=== PATIENT | male | born 1955 | race Caucasian/White ===

== ENCOUNTER 2022-10-02 07:32 | Outpatient (OUT) | payer OTHER, SELFPAY ==
[2022-10-02 07:50] LABS: Basophils Absolute Auto 0.1 10^3/uL (0.0-0.1); Basophils Percent Auto 0.7 % (0.2-2.0); Eosinophils Absolute Auto 0.3 10^3/uL (0.0-0.7); Eosinophils Percent Auto 4.3 % (0.9-7.0); Hematocrit 50.4 % (42.0-54.0); Hemoglobin 16.7 g/dL (14.0-18.0); Immature Granulocytes Abs Auto 0.02 10^3/uL (0.00-0.03); Immature Granulocytes Pct Auto 0.3 % (0.0-0.5); Lymphocytes Percent Auto 28.6 % (20.5-60.0); Mean Corpuscular HGB Conc 33.1 g/dL (29.9-35.2); Mean Corpuscular Hemoglobin 29.8 pg (25.9-34.0); Mean Platelet Volume 8.6 fL (9.5-13.5); Monocytes Absolute Auto 0.7 10^3/uL (0.3-0.8); Monocytes Percent Auto 9.3 % (1.7-12.0); Neutrophils Percent Auto 56.8 % (43.0-75.0); Platelet Count 261 10^3/uL (150-450)
[2022-10-02 08:10] LABS: Estimated Average Glucose 111 mg/dL; Glycohemoglobin A1C 5.5 % (4.5-6.2)
[2022-10-02 08:31] LABS: Alanine Aminotransferase 18 U/L (16-63); Albumin Globulin Ratio 0.9; Albumin Level 3.6 g/dL (3.4-5.0); Alkaline Phosphatase 59 U/L (46-116); Anion Gap 9.4; Aspartate Amino Transferase 10 U/L (15-37); Bilirubin Total 0.4 mg/dL (0.2-1.0); Calcium 9.2 mg/dL (8.5-10.1); Carbon Dioxide 32.1 mmol/L (21.0-32.0); Chloride 105 mmol/L (98-107); Cholesterol 203 mg/dL (<=200); Estimated GFR (African America >60 (>=60); Estimated GFR (Non-African Ame >60 (>=60); Free T3 3.27 pg/mL (2.18-3.98); Glucose 105 mg/dL (74-106); HDL Cholesterol 51 mg/dL (40-60); Potassium 4.5 mmol/L (3.5-5.1); Sodium 142 mmol/L (136-145); Thyroid Stimulating Hormone 2.751 uIU/mL (0.358-3.740); Total Protein 7.6 g/dL (6.4-8.2); Triglycerides 86 mg/dL (<=150); VLDL CHOLESTEROL 17.2 mg/dL
[2022-10-02 09:17] LABS: Prostate Specific Antigen Scrn 9.59 ng/mL (<=4.00)
== END 2022-10-02 07:33 | disposition home or self-care (01) ==
PROVIDERS: PCP Family Medicine; Visit Provider Family Medicine
DX: J44.9 Chronic obstructive pulmonary disease, unspecified (principal); R73.09 Other abnormal glucose; Z12.5 Encounter for screening for malignant neoplasm of prostate
CPT/HCPCS: 36415; 80053; 80061; 83036; 84436; 84443; 84481; 85025; G0103

== ENCOUNTER 2023-04-27 09:47 | Inpatient (IN) | payer MEDICARE, OTHER, SELFPAY ==
[2023-04-27] VITALS (8 sets, daily range): BP systolic 118–134; BP diastolic 55–83; PULSE 78–100; RESP 14–22; TEMP 36.5–36.8; O2SAT 94–100; BMI 25.8; BMI 26.5
--- NOTE | 2023-04-27 10:02 | ED.SKABFB1 ---
HPI - Skin/Abscess/Foreign Bdy General Chief complaint: Skin/Abscess/Foreign Body Stated complaint: Abscess Time Seen by Provider: 04/27/23 09:49 Source: patient Mode of arrival: walk-in Limitations: no limitations History of Present Illness HPI narrative: 68-year-old male presents for painful red swollen area on his left buttock. He states for years he has had a small spot there but it never gave him any trouble until a week or 2 ago. It started getting bigger and it popped open and his squeezed it and he states that some pus came out. It continues to hurt so he came in to be evaluated. No fever or vomiting Related Data Home Medications Medication Instructions Recorded Confirmed albuterol sulfate 90 mcg/actuation 2 puff inhalation Q4H PRN 04/27/23 04/27/23 aerosol inhaler shortness of breath or wheezing fluticasone fur. 100 mcg-umeclid 1 inh inhalation DAILY 04/27/23 04/27/23 62.5 mcg-vilant 25 mcg inhalat.powder (Trelegy Ellipta) Allergies Allergy/AdvReac Type Severity Reaction Status Date / Time No Known Drug Allergies Allergy Verified 04/27/23 09:51 Review of Systems ROS Narrative A ten point review of systems is negative except as noted above. PFSH PFSH Social History Smoking status: Heavy tobacco smoker Exam Narrative Exam Narrative: Nurses note and vital signs reviewed and patient is not hypoxic. General: The patient appears well and in no apparent distress. Patient is resting comfortably on cart. Skin: Warm, dry, no pallor noted. There is no rash noted. Head: Normocephalic, atraumatic Eye: Normal conjunctiva, no drainage Ears, Nose, Mouth, and Throat: oral mucosa is moist. Nares patent. Cardiovascular: Regular Rate and Rhythm Respiratory: Patient is in no distress, no accessory muscle use, lungs are clear to auscultation, no wheezing, rales or rhonchi Back: non-tender GI: Soft and nontender Musculoskeletal: Left buttock has a raised erythematous tender area with mild fluctuance. There is no open area or drainage. The firm area is approximately 3 inches in diameter. Neurological: A&O, normal speech Psychiatric: Cooperative Constitutional Vital Signs, click to edit/add: Last Vital Signs Temp 97.7 F 04/27/23 09:52 Pulse 78 02/13/24 09:52 Resp 20 04/27/23 09:52 BP 118/71 04/27/23 09:52 Pulse Ox 98 04/27/23 09:52 O2 Del Method Room Air 04/27/23 09:52 Course Vital Signs Vital signs: Vital Signs Temperature 97.7 F 04/27/23 09:52 Pulse Rate 78 04/27/23 09:52 Respiratory Rate 20 04/27/23 09:52 Blood Pressure 118/71 04/27/23 09:52 Pulse Oximetry 98 04/27/23 09:52 Oxygen Delivery Method Room Air 04/27/23 09:52 Temperature 97.7 F 04/27/23 09:52 Pulse Rate 78 04/27/23 09:52 Respiratory Rate 20 04/27/23 09:52 Blood Pressure 118/71 04/27/23 09:52 Pulse Oximetry 98 04/27/23 09:52 Oxygen Delivery Method Room Air 04/27/23 09:52 MDM - Skin/Abscess/Foreign Bdy MDM Narrative Medical decision making narrative: The patient has an abscess which has been incised and drained. He was given IV vancomycin and is being admitted for further IV antibiotics. This is a large abscess that requires hospitalization. Findings are discussed with the patient. The following procedure was performed by me. Local infiltration was carried out with 1% lidocaine without epinephrine resulting in good skin anesthesia. The area was prepped with Betadine x 3 and draped sterilely and using a #11 blade the abscess was incised and drained of a moderate amount of purulent material and packing was placed. No complications. Differential Diagnosis Differential diagnosis: Likely abscess of skin or subcutaneous tissue and cellulitis Lab Data Attestation: I reviewed the patient's lab results. Labs: Lab Results 04/27/23 Range/Units 10:15 WBC 11.2 H (4.0-11.0) 10^3/uL RBC 5.27 (4.70-6.10) 10^6/uL Hgb 15.9 (14.0-18.0) g/dL Hct 48.0 (42.0-54.0) % MCV 91.1 (80.0-94.0) fL MCH 30.2 (25.9-34.0) pg MCHC 33.1 (29.9-35.2) g/dL RDW 12.6 (11.0-15.0) % Plt Count 264 (150-450) 10^3/uL MPV 9.3 L (9.5-13.5) fL Neut % (Auto) 70.9 (43.0-75.0) % Lymph % (Auto) 17.8 L (20.5-60.0) % [place] % (Auto) 8.7 (1.7-12.0) % Eos % (Auto) 1.9 (0.9-7.0) % Baso % (Auto) 0.4 (0.2-2.0) % Neut # (Auto) 7.9 H (1.4-6.5) 10^3/uL Lymph # (Auto) 2.0 (1.2-3.8) 10^3/uL [place] # (Auto) 1.0 H (0.3-0.8) 10^3/uL Eos # (Auto) 0.2 (0.0-0.7) 10^3/uL Baso # (Auto) 0.1 (0.0-0.1) 10^3/uL Abs Immat Gran (auto) 0.03 (0.00-0.03) 10^3/uL Imm/Tot Granulo (auto) 0.3 (0.0-0.5) % Sodium 139 (136-145) mmol/L Potassium 3.8 (3.5-5.1) mmol/L Chloride 103 (98-107) mmol/L Carbon Dioxide 29.0 (21.0-32.0) mmol/L Anion Gap 10.8 BUN 18.0 (7.0-18.0) mg/dL Creatinine 1.13 (0.70-1.30) mg/dL Est GFR ( Amer) >60 (>=60) Est GFR (Non-Af Amer) >60 (>=60) BUN/Creatinine Ratio 15.9 Glucose 102 (74-106) mg/dL Calcium 9.3 (8.5-10.1) mg/dL Discharge Plan Discharge Chief Complaint: Skin/Abscess/Foreign Body Clinical Impression: Abscess Patient Disposition: Admitted as Observation Time of Disposition Decision: 11:45 Condition: Good
[2023-04-27] MEDS: LIDOCAINE HCL 1% 100 MG/10 ML MDV INJ (10:21)
[2023-04-27 10:33] LABS: Basophils Absolute Auto 0.1 10^3/uL (0.0-0.1); Basophils Percent Auto 0.4 % (0.2-2.0); Eosinophils Absolute Auto 0.2 10^3/uL (0.0-0.7); Eosinophils Percent Auto 1.9 % (0.9-7.0); Hemoglobin 15.9 g/dL (14.0-18.0); Immature Granulocytes Abs Auto 0.03 10^3/uL (0.00-0.03); Immature Granulocytes Pct Auto 0.3 % (0.0-0.5); Lymphocytes Percent Auto 17.8 % (20.5-60.0); Mean Corpuscular HGB Conc 33.1 g/dL (29.9-35.2); Mean Corpuscular Hemoglobin 30.2 pg (25.9-34.0); Mean Corpuscular Volume 91.1 fL (80.0-94.0); Mean Platelet Volume 9.3 fL (9.5-13.5); Monocytes Percent Auto 8.7 % (1.7-12.0); Neutrophils Absolute Auto 7.9 10^3/uL (1.4-6.5); Neutrophils Percent Auto 70.9 % (43.0-75.0); Platelet Count 264 10^3/uL (150-450); Red Blood Count 5.27 10^6/uL (4.70-6.10); Red Cell Distribution Width 12.6 % (11.0-15.0); White Blood Count 11.2 10^3/uL (4.0-11.0)
[2023-04-27 11:00] LABS: Anion Gap 10.8; BUN Creatinine Ratio 15.9; Calcium 9.3 mg/dL (8.5-10.1); Chloride 103 mmol/L (98-107); Estimated GFR (African America >60 (>=60); Estimated GFR (Non-African Ame >60 (>=60); Glucose 102 mg/dL (74-106); Potassium 3.8 mmol/L (3.5-5.1); Sodium 139 mmol/L (136-145)
[2023-04-27 12:00] LABS: Alanine Aminotransferase 20 U/L (16-63); Albumin Globulin Ratio 0.7; Albumin Level 3.3 g/dL (3.4-5.0); Alkaline Phosphatase 65 U/L (46-116); Aspartate Amino Transferase 15 U/L (15-37); Bilirubin Direct 0.2 mg/dL (0.0-0.2); Bilirubin Total 0.6 mg/dL (0.2-1.0); Globulin 4.7 g/dL
[2023-04-27] MEDS: PIPERACILLIN SODIUM/TAZOBACTAM 3.375 GM in 0.9 % SODIUM CHLORIDE 50 ML IV ×2 (12:36→22:49)
[2023-04-27 12:38] LABS: Lactate/Lactic Acid 1.2 mmol/L (0.4-2.0)
[2023-04-27 13:19] LABS: PROCALCITONIN <0.05 ng/mL (0.00-0.50)
[2023-04-27] MEDS: VANCOMYCIN HCL 1,250 MG in 0.9 % SODIUM CHLORIDE 250 ML 250 MG IV (13:35)
--- NOTE | 2023-04-27 14:05 | P.HP_ITS ---
H&P: HPI History of Present Illness Chief complaint: ABSCESS Narrative: Pt has had a lump - for a long time - in last two weeks getting bigger - some drainage - in last 2 days got much worse - in ER large drainage, packed - needs admitted - possible further surgical intervention Review of Systems ROS Status of ROS 10 or more systems reviewed and unremark able except as noted in history and below PFSH PFS Social History (Updated 04/27/23 @ 14:26 by Mercedes Kay RN) Smoking status: Heavy tobacco smoker Highest level of school completed/degree received: high school graduate Little interest or pleasure in doing things: not at all Feeling down, depressed, or hopeless: not at all Feel stressed/tense/nervous/anxious/difficulty sleeping: not at all Due to disability, difficulty making decisions: No Meds Home Medications and Allergies Home Medications Medication Instructions Recorded Confirmed Type albuterol sulfate 90 mcg/actuation 2 puff inhalation Q4H PRN 04/27/23 04/27/23 History aerosol inhaler shortness of breath or wheezing fluticasone fur. 100 mcg-umeclid 1 inh inhalation DAILY 04/27/23 04/27/23 History 62.5 mcg-vilant 25 mcg inhalat.powder (Trelegy Ellipta) Allergies Allergy/AdvReac Type Severity Reaction Status Date / Time No Known Drug Allergies Allergy Verified 04/27/23 09:51 Exam Constitutional Vital Signs, click to edit/add: Last Vital Signs Temp 97.7 F 04/27/23 09:52 Pulse 98 H 04/27/23 12:37 Resp 18 04/27/23 13:53 BP 118/71 04/27/23 13:53 Pulse Ox 100 04/27/23 13:53 O2 Del Method Room Air 04/27/23 12:37 Documenting provider has reviewed patient's vital signs: yes Common normals: no apparent distress Chest Common normals: inspection of chest normal Respiratory Common normals: normal respiratory effort and no retractions Cardio Common normals: regular rate and regular rhythm GI Common normals: Normal to inspection, nondistended, normoactive bowel sounds present Other: Left buttocks area - The wound is packed Results Labs Labs: Short CBC 04/27/23 Range/Units 10:15 WBC 11.2 H (4.0-11.0) 10^3/uL Hgb 15.9 (14.0-18.0) g/dL Hct 48.0 (42.0-54.0) % Plt Count 264 (150-450) 10^3/uL BMP 04/27/23 10:15 Sodium 139 Potassium 3.8 Chloride 103 Carbon Dioxide 29.0 BUN 18.0 Creatinine 1.13 Glucose 102 Calcium 9.3 Liver Function 04/27/23 Range/Units 10:15 Total Bilirubin 0.6 (0.2-1.0) mg/dL Direct Bilirubin 0.2 (0.0-0.2) mg/dL AST 15 (15-37) U/L ALT 20 (16-63) U/L Alkaline Phosphatase 65 (46-116) U/L Albumin 3.3 L (3.4-5.0) g/dL Assessment and Plan Assessment and Plan (1) Abscess: Plan Tachycardia, leukocytosis abscess formation left butt cheek, concerning for possible fistula with proximity to rectum. Consultation to surgery, IV antibiotics. Blood cultures pending, wound culture pending-check lactate level as well as sed rate and CRP. COPD-continue with home medications With failed outpatient treatment progression of his illness fairly rapidly last 24 to 48 hours, surgical intervention, with home manipulation suspect possibly deeper abscess. Patient likely here 2 to 3 days. Inpatient status.
[2023-04-27 15:04] LABS: Erythrocyte Sedimentation Rate 34 mm/hr (<=20)
[2023-04-27 15:19] LABS: C Reactive Protein 2.36 mg/dL (<=0.50)
[2023-04-27 15:22] LABS: Lactate/Lactic Acid 2.2 mmol/L (0.4-2.0)
[2023-04-27] MEDS: 0.9 % SODIUM CHLORIDE 1,000 ML 1000 ML IV ×2 (16:25→17:38)
[2023-04-27 18:13] LABS: Lactate/Lactic Acid 1.2 mmol/L (0.4-2.0)
[2023-04-27] MEDS: BUDESONIDE 0.5 MG/2 ML AMPULE NEB IH (20:11)
[2023-04-27] MEDS: IPRATROPIUM/ALBUTEROL SULFATE 3 ML AMPUL.NEB 2.5 ML IH (20:11)
[2023-04-27 20:50] LABS: Adenovirus NOT DETECTED (NOT DETECTE); Bordetella parapertussis NOT DETECTED (NOT DETECTE); Coronavirus 229E NOT DETECTED (NOT DETECTE); Coronavirus HKU1 NOT DETECTED (NOT DETECTE); Coronavirus NL63 NOT DETECTED (NOT DETECTE); Coronavirus OC43 NOT DETECTED (NOT DETECTE); Human Metapneumovirus NOT DETECTED (NOT DETECTE); Human Rhinovirus/Enterovirus NOT DETECTED (NOT DETECTE); Influenza A NOT DETECTED (NOT DETECTE); Influenza B NOT DETECTED (NOT DETECTE); Mycoplasma pneumoniae NOT DETECTED (NOT DETECTE); Parainfluenza Virus 1 NOT DETECTED (NOT DETECTE); Parainfluenza Virus 2 NOT DETECTED (NOT DETECTE); Parainfluenza Virus 3 NOT DETECTED (NOT DETECTE); Parainfluenza Virus 4 NOT DETECTED (NOT DETECTE); Respiratory Syncytial Virus NOT DETECTED (NOT DETECTE); SARS-CoV-2 NOT DETECTED (NOT DETECTE)
[2023-04-28] MEDS: VANCOMYCIN HCL 1,000 MG in 0.9 % SODIUM CHLORIDE 250 ML 250 MG IV ×2 (02:49→11:46)
[2023-04-28 03:21] LABS: Bilirubin Urine NEGATIVE (NEGATIVE); Blood Urine NEGATIVE (NEGATIVE); Clarity Urine CLEAR (CLEAR); Color Urine LT. YELLOW (YELLOW); Glucose Urine UA NEGATIVE (NEGATIVE); Ketones Urine NEGATIVE (NEGATIVE); Leukocyte Esterase Urine SMALL (NEGATIVE); Nitrite Urine NEGATIVE (NEGATIVE); Protein Urine NEGATIVE (NEG/TRACE); Specific Gravity Urine 1.025 (1.005-1.025); Urobilinogen Urine 0.2 EU/dL (0.2-1.0); pH Urine 5.5 (5.0-9.0)
[2023-04-28 03:22] LABS: Urine Microscopic Indicated YES
[2023-04-28 03:28] LABS: Bacteria Urine NONE SEEN #/HPF (NONE SEEN); Cast Seen? NONE SEEN #/LPF (NONE SEEN); Crystals Seen? None Seen #/HPF (None Seen); Mucus Urine NONE SEEN (NONE SEEN); RBC Urine NONE SEEN #/HPF (0-2); Squamous Epithelial Cell Urine RARE #/LPF (NONE/RARE); WBC Urine 0-2 #/HPF (NONE SEEN)
[2023-04-28 05:06] VITALS: PULSE 72; RESP 16; O2SAT 97
[2023-04-28] MEDS: IPRATROPIUM/ALBUTEROL SULFATE 3 ML AMPUL.NEB 2.5 ML IH (05:06)
[2023-04-28] MEDS: PIPERACILLIN SODIUM/TAZOBACTAM 3.375 GM in 0.9 % SODIUM CHLORIDE 50 ML IV ×2 (05:09→11:09)
[2023-04-28 05:16] VITALS: PULSE 87; RESP 18; O2SAT 97
[2023-04-28 05:23] VITALS: BP 108/48; PULSE 80; RESP 18; TEMP 36.6; O2SAT 94
[2023-04-28 05:37] LABS: Basophils Percent Auto 0.4 % (0.2-2.0); Eosinophils Absolute Auto 0.2 10^3/uL (0.0-0.7); Eosinophils Percent Auto 2.2 % (0.9-7.0); Hematocrit 41.1 % (42.0-54.0); Hemoglobin 13.6 g/dL (14.0-18.0); Immature Granulocytes Abs Auto 0.02 10^3/uL (0.00-0.03); Immature Granulocytes Pct Auto 0.2 % (0.0-0.5); Lymphocytes Absolute Auto 2.5 10^3/uL (1.2-3.8); Lymphocytes Percent Auto 27.6 % (20.5-60.0); Mean Corpuscular HGB Conc 33.1 g/dL (29.9-35.2); Mean Corpuscular Hemoglobin 30.3 pg (25.9-34.0); Mean Corpuscular Volume 91.5 fL (80.0-94.0); Mean Platelet Volume 9.4 fL (9.5-13.5); Monocytes Absolute Auto 0.8 10^3/uL (0.3-0.8); Monocytes Percent Auto 8.5 % (1.7-12.0); Neutrophils Absolute Auto 5.6 10^3/uL (1.4-6.5); Neutrophils Percent Auto 61.1 % (43.0-75.0); Platelet Count 220 10^3/uL (150-450); Red Blood Count 4.49 10^6/uL (4.70-6.10); Red Cell Distribution Width 12.4 % (11.0-15.0); White Blood Count 9.1 10^3/uL (4.0-11.0)
[2023-04-28 05:56] LABS: Anion Gap 11.9; BUN Creatinine Ratio 14.4; Calcium 8.3 mg/dL (8.5-10.1); Carbon Dioxide 25.9 mmol/L (21.0-32.0); Chloride 106 mmol/L (98-107); Estimated GFR (African America >60 (>=60); Estimated GFR (Non-African Ame >60 (>=60); Glucose 103 mg/dL (74-106); Potassium 3.8 mmol/L (3.5-5.1); Sodium 140 mmol/L (136-145)
[2023-04-28 06:05] LABS: C Reactive Protein 2.28 mg/dL (<=0.50)
[2023-04-28 06:28] LABS: Erythrocyte Sedimentation Rate 52 mm/hr (<=20)
--- NOTE | 2023-04-28 09:44 | CM.NOTE ---
Rounds made with Dr. Manzo, awaiting general surgery to evaluate pt for further recommendations. Possible discharge this afternoon on antibiotics, nurse will do teaching with drsg changes.
--- NOTE | 2023-04-28 09:45 | CM.NOTE ---
Talked with pt about HH services for dressing changes, pt refuses HH services. Pt states he and his will be able to complete dressing changes.
--- NOTE | 2023-04-28 09:50 | P.DS_ITS ---
DS: Providers Provider Date of admission: 04/27/23 13:59 Primary care physician: Willie Manzo MD Consults: 04/27/23 13:59 Consult to General Surgeon Routine Consulting Provider: Bradford Scott Reason for consultation: Abscess Has provider been notified: No DS: Diagnosis Discharge Diagnosis (1) Abscess: DS: Summary Hospital Course Hospital Course: Patient presented to the emergency room with increasing swelling on his left buttocks. He been treating this as an outpatient with topical antibiotic cream in [place] and at home. With indicated to drain, it rapidly progressed in size, suspecting that instead of draining outwardly broken deep. I&D completed in ER with significant depth to the open area. Packing was placed. Consultation to surgery. At the time was felt highly likely this would be a lengthy stay. With the depth of the wound, his leukocytosis and his lactic acidosis with significant elevation in ESR and CRP, I anticipated a 2 to 3-day hospital stay. However his lactic acidosis resolved quickly his white blood cell count returned to normal, surgery evaluated and felt no further need for debridement. Although I do believe patient could benefit from another day or 2 of IV antibiotics due to the depth of this wound, will discharge patient to home in improving condition faster than expected. He can follow-up with surgery within the next week or so. Continue with oral antibiotics. See me in the office for follow-up as well within the next week. Patient made inpatient status secondary to the lactic acidosis leukocytosis significant elevation in sed rate and CRP in the depth of the wound, seem highly likely patient will be needed to be taken to the operating room for surgical debridement. However patient recovered quicker than anticipated. Time Spent with Patient Time attestation: Total time spent providing and/or coordinating discharge services: Exam Constitutional Vital Signs, click to edit/add: Last Vital Signs Temp 97.9 F 04/28/23 05:23 Pulse 80 04/28/23 05:23 Resp 18 04/28/23 05:23 BP 108/48 L 04/28/23 05:23 Pulse Ox 94 L 04/28/23 05:23 O2 Del Method Room Air 04/28/23 05:23 FiO2 96 04/27/23 15:36 Common normals: no apparent distress, average body habitus and oriented x3 Chest Common normals: inspection of chest normal Respiratory Common normals: normal respiratory effort and no use of accessory muscles Cardio Common normals: regular rate GI Common normals: soft to palpation and non-tender Inspection: normal to inspection Other: Left mid gluteus with small stab incision and packing noted. Surrounding area with minimal erythema. Mild drainage that is sanguinous. No crepitus or streaking noted. Back & Pelvis Thoracic spine/upper back: normal to inspection Neuro Common normals: oriented x3 Psych Common normals: mental status grossly normal DS: Data Data Completed and Pending Labs on day of discharge: Labs from last 24 hours 04/28/23 04/28/23 04/27/23 05:06 03:15 20:45 WBC 9.1 RBC 4.49 L Hgb 13.6 L Hct 41.1 L MCV 91.5 MCH 30.3 MCHC 33.1 RDW 12.4 Plt Count 220 MPV 9.4 L Neut % (Auto) 61.1 Lymph % (Auto) 27.6 [place] % (Auto) 8.5 Eos % (Auto) 2.2 Baso % (Auto) 0.4 Neut # (Auto) 5.6 Lymph # (Auto) 2.5 [place] # (Auto) 0.8 Eos # (Auto) 0.2 Baso # (Auto) 0.0 Abs Immat Gran (auto) 0.02 Imm/Tot Granulo (auto) 0.2 ESR 52 H Sodium 140 Potassium 3.8 Chloride 106 Carbon Dioxide 25.9 Anion Gap 11.9 BUN 16.0 Creatinine 1.11 Est GFR ( Amer) >60 Est GFR (Non-Af Amer) >60 BUN/Creatinine Ratio 14.4 Glucose 103 Lactate Calcium 8.3 L Total Bilirubin Direct Bilirubin AST ALT Alkaline Phosphatase C-Reactive Protein 2.28 H Total Protein Albumin Globulin Albumin/Globulin Ratio Procalcitonin Urine Color Lt. yellow Urine Clarity Clear Urine pH 5.5 Ur Specific [place] 1.025 Urine Protein Negative Urine Glucose (UA) Negative Urine Ketones Negative Urine Occult Blood Negative Urine Nitrite Negative Urine Bilirubin Negative Urine Urobilinogen 0.2 Ur Leukocyte Esterase Small A Urine RBC None seen Urine WBC 0-2 A Ur Squamous Epith Cells Rare Urine Crystals None seen Urine Bacteria None seen Urine Casts None seen Urine Mucus None seen Adenovirus (PCR) Not detected C. pneumoniae DNA (PCR) Not detected Coronavirus Type OC43 Not detected Coronavirus Type HKU1 Not detected Coronavirus Type 229E Not detected Coronavirus Type NL63 Not detected Human Metapneumovir PCR Not detected M. pneumoniae (PCR) Not detected Parainfluenza PCR Not detected Parainfluenza 2 (PCR) Not detected Parainfluenza 3 (PCR) Not detected Parainfluenza 4 (PCR) Not detected RSV (RT-PCR) Not detected Entero/Rhino (PCR) Not detected SARS-CoV-2 (PCR) Not detected Bordetella pertussis (PCR) Not detected B parapertussis DNA PCR Not detected Influenza Type A (PCR) Not detected Influenza Type B (PCR) Not detected 04/27/23 04/27/23 04/27/23 17:48 14:41 10:15 WBC 11.2 H RBC 5.27 Hgb 15.9 Hct 48.0 MCV 91.1 MCH 30.2 MCHC 33.1 RDW 12.6 Plt Count 264 MPV 9.3 L Neut % (Auto) 70.9 Lymph % (Auto) 17.8 L [place] % (Auto) 8.7 Eos % (Auto) 1.9 Baso % (Auto) 0.4 Neut # (Auto) 7.9 H Lymph # (Auto) 2.0 [place] # (Auto) 1.0 H Eos # (Auto) 0.2 Baso # (Auto) 0.1 Abs Immat Gran (auto) 0.03 Imm/Tot Granulo (auto) 0.3 ESR 34 H Sodium 139 Potassium 3.8 Chloride 103 Carbon Dioxide 29.0 Anion Gap 10.8 BUN 18.0 Creatinine 1.13 Est GFR ( Amer) >60 Est GFR (Non-Af Amer) >60 BUN/Creatinine Ratio 15.9 Glucose 102 Lactate 1.2 2.2 H* 1.2 Calcium 9.3 Total Bilirubin 0.6 Direct Bilirubin 0.2 AST 15 ALT 20 Alkaline Phosphatase 65 C-Reactive Protein 2.36 H Total Protein 8.0 Albumin 3.3 L Globulin 4.7 Albumin/Globulin Ratio 0.7 Procalcitonin <0.05 Urine Color Urine Clarity Urine pH Ur Specific [place] Urine Protein Urine Glucose (UA) Urine Ketones Urine Occult Blood Urine Nitrite Urine Bilirubin Urine Urobilinogen Ur Leukocyte Esterase Urine RBC Urine WBC Ur Squamous Epith Cells Urine Crystals Urine Bacteria Urine Casts Urine Mucus Adenovirus (PCR) C. pneumoniae DNA (PCR) Coronavirus Type OC43 Coronavirus Type HKU1 Coronavirus Type 229E Coronavirus Type NL63 Human Metapneumovir PCR M. pneumoniae (PCR) Parainfluenza PCR Parainfluenza 2 (PCR) Parainfluenza 3 (PCR) Parainfluenza 4 (PCR) RSV (RT-PCR) Entero/Rhino (PCR) SARS-CoV-2 (PCR) Bordetella pertussis (PCR) B parapertussis DNA PCR Influenza Type A (PCR) Influenza Type B (PCR) Discharge Plan Discharge Disposition: Home, Self-Care Condition: Good Discharge Medications: New doxycycline monohydrate 100 mg capsule 100 mg PO BID 14 Days Qty: 28 0RF cefdinir 300 mg capsule 600 mg PO DAILY Qty: 30 0RF Continued albuterol sulfate 90 mcg/actuation HFA aerosol inhaler 2 puff INHALATION Q4H PRN (Reason: shortness of breath or wheezing) Trelegy Ellipta 100-62.5-25 mcg blister with device 1 inh INHALATION DAILY Activity: resume usual activities as tolerated Diet: advance to your usual diet Patient Instructions: Abscess (ED), Incision and Drainage (DC) Activity Restrictions/Additional Instructions: Shower at minimum twice a day to keep area clean and dry. Forms: Portal Instructions Follow Up Appointments: @ 10:30am with Dr. Manzo [phone] Discharge Date/Time: 04/28/23 13:10
--- NOTE | 2023-04-28 10:00 | CM.NOTE ---
Important Message From Medicare discussed with pt, pt verbalizes understanding and signs paper. Original given to pt and copy placed on pt's chart.
--- NOTE | 2023-04-28 10:38 | PC.NURSE ---
called pharmacy and discussed iv atb times and rescheduled medications to better serve pt.
--- NOTE | 2023-04-28 11:00 | PM.GSCN ---
History of Present Illness Consult details Consult date: 04/27/23 Reason for consult: wound care Narrative: 60-year-old male who presented with left gluteal subcutaneous abscess that was drained in the ER. Patient states he has had this once before on the opposite otherwise no history of recurrent skin infections. Patient does admit to smoking 4 to 5 cigarettes daily. Otherwise patient has had no other complaints. Patient states area is feeling much better today. Patient denies any fever, chills, nausea, emesis. Review of Systems ROS Status of ROS 10 or more systems reviewed and unremarkable except as noted in history and below [facility] Social History (Updated 04/27/23 @ 14:26 by Mercedes Kay RN) Smoking status: Heavy tobacco smoker Highest level of school completed/degree received: high school graduate Little interest or pleasure in doing things: not at all Feeling down, depressed, or hopeless: not at all Feel stressed/tense/nervous/anxious/difficulty sleeping: not at all Due to disability, difficulty making decisions: No Meds Home Medications and Allergies Home Medications Medication Instructions Recorded Confirmed Type albuterol sulfate 90 mcg/actuation 2 puff inhalation Q4H PRN 04/27/23 04/27/23 History aerosol inhaler shortness of breath or wheezing fluticasone fur. 100 mcg-umeclid 1 inh inhalation DAILY 04/27/23 04/27/23 History 62.5 mcg-vilant 25 mcg inhalat.powder (Trelegy Ellipta) cefdinir 300 mg capsule 600 mg (2 x 300 mg) PO DAILY #30 04/28/23 Rx caps doxycycline monohydrate 100 mg 100 mg PO BID 14 days #28 caps 04/28/23 Rx capsule Allergies Allergy/AdvReac Type Severity Reaction Status Date / Time No Known Drug Allergies Allergy Verified 04/27/23 09:51 Exam Constitutional Vital Signs, click to edit/add: Last Vital Signs Temp 97.9 F 04/28/23 05:23 Pulse 80 04/28/23 05:23 Resp 18 04/28/23 05:23 BP 108/48 L 04/28/23 05:23 Pulse Ox 94 L 04/28/23 05:23 O2 Del Method Room Air 04/28/23 05:23 FiO2 96 04/27/23 15:36 Common normals: no apparent distress, average body habitus and oriented x3 Chest Common normals: inspection of chest normal Respiratory Common normals: normal respiratory effort and no use of accessory muscles Cardio Common normals: regular rate GI Common normals: soft to palpation and non-tender Inspection: normal to inspection Other: Left mid gluteus with small stab incision and packing noted. Surrounding area with minimal erythema. Mild drainage that is sanguinous. No crepitus or streaking noted. Back & Pelvis Thoracic spine/upper back: normal to inspection Neuro Common normals: oriented x3 Psych Common normals: mental status grossly normal Results Labs Labs: Abnormal lab results 04/27/23 04/27/23 04/28/23 Range/Units 10:15 14:41 03:15 RBC (4.70-6.10) 10^6/uL Hgb (14.0-18.0) g/dL Hct (42.0-54.0) % MPV (9.5-13.5) fL ESR 34 H (<=20) mm/hr Lactate 2.2 H* (0.4-2.0) mmol/L Calcium (8.5-10.1) mg/dL C-Reactive Protein 2.36 H (<=0.50) mg/dL Albumin 3.3 L (3.4-5.0) g/dL Ur Leukocyte Esterase Small A (NEGATIVE) Urine WBC 0-2 A (NONE SEEN) #/HPF 04/28/23 Range/Units 05:06 RBC 4.49 L (4.70-6.10) 10^6/uL Hgb 13.6 L (14.0-18.0) g/dL Hct 41.1 L (42.0-54.0) % MPV 9.4 L (9.5-13.5) fL ESR 52 H (<=20) mm/hr Lactate (0.4-2.0) mmol/L Calcium 8.3 L (8.5-10.1) mg/dL C-Reactive Protein 2.28 H (<=0.50) mg/dL Albumin (3.4-5.0) g/dL Ur Leukocyte Esterase (NEGATIVE) Urine WBC (NONE SEEN) #/HPF Diabetes panel 04/27/23 04/28/23 Range/Units 10:15 05:06 Sodium 139 140 (136-145) mmol/L Potassium 3.8 3.8 (3.5-5.1) mmol/L Chloride 103 106 (98-107) mmol/L Carbon Dioxide 29.0 25.9 (21.0-32.0) mmol/L BUN 18.0 16.0 (7.0-18.0) mg/dL Creatinine 1.13 1.11 (0.70-1.30) mg/dL Glucose 102 103 (74-106) mg/dL Calcium 9.3 8.3 L (8.5-10.1) mg/dL AST 15 (15-37) U/L ALT 20 (16-63) U/L Alkaline Phosphatase 65 (46-116) U/L Total Protein 8.0 (6.4-8.2) g/dL Albumin 3.3 L (3.4-5.0) g/dL Calcium panel 04/27/23 04/28/23 Range/Units 10:15 05:06 Calcium 9.3 8.3 L (8.5-10.1) mg/dL Albumin 3.3 L (3.4-5.0) g/dL Pituitary panel 04/27/23 04/28/23 Range/Units 10:15 05:06 Sodium 139 140 (136-145) mmol/L Potassium 3.8 3.8 (3.5-5.1) mmol/L Chloride 103 106 (98-107) mmol/L Carbon Dioxide 29.0 25.9 (21.0-32.0) mmol/L BUN 18.0 16.0 (7.0-18.0) mg/dL Creatinine 1.13 1.11 (0.70-1.30) mg/dL Glucose 102 103 (74-106) mg/dL Calcium 9.3 8.3 L (8.5-10.1) mg/dL Adrenal panel 04/27/23 04/28/23 Range/Units 10:15 05:06 Sodium 139 140 (136-145) mmol/L Potassium 3.8 3.8 (3.5-5.1) mmol/L Chloride 103 106 (98-107) mmol/L Carbon Dioxide 29.0 25.9 (21.0-32.0) mmol/L BUN 18.0 16.0 (7.0-18.0) mg/dL Creatinine 1.13 1.11 (0.70-1.30) mg/dL Glucose 102 103 (74-106) mg/dL Calcium 9.3 8.3 L (8.5-10.1) mg/dL Total Bilirubin 0.6 (0.2-1.0) mg/dL AST 15 (15-37) U/L ALT 20 (16-63) U/L Alkaline Phosphatase 65 (46-116) U/L Total Protein 8.0 (6.4-8.2) g/dL Albumin 3.3 L (3.4-5.0) g/dL All other labs normal. Assessment and Plan Assessment and Plan (1) Abscess: Plan Left gluteal abscess Recommended for sitz bath's 3 times daily. Complete 7-day course of oral antibiotics. Keep area dry and clean. Return if having worsening pain or spreading erythema. Stressed importance of smoking cessation or at least pausing for the next 10 to 14 days to help with healing and decrease chances of worsening infection. Can follow-up as outpatient with wound care or PCP for wound check in 1 to 2 weeks.
[2023-04-28] MEDS: BUDESONIDE 0.5 MG/2 ML AMPULE NEB IH (11:29)
[2023-04-28] MEDS: IPRATROPIUM/ALBUTEROL SULFATE 3 ML AMPUL.NEB IH (11:29)
[2023-04-28 11:31] VITALS: PULSE 66; O2SAT 97
== END 2023-04-28 13:10 | disposition home or self-care (01) | DRG 603 ==
LOC: ER 11:45 → MS 14:02
PROVIDERS: Nurse Practitioner Acute Care; Admitting Provider Family Medicine; Emergency Provider Emergency Medicine; PCP Family Medicine; Visit Provider Family Medicine
DX: L02.31 Cutaneous abscess of buttock (principal); E87.20 Acidosis, unspecified; R00.0 Tachycardia, unspecified; J44.9 Chronic obstructive pulmonary disease, unspecified; D72.829 Elevated white blood cell count, unspecified; R70.0 Elevated erythrocyte sedimentation rate; R79.82 Elevated C-reactive protein (CRP); Z79.899 Other long term (current) drug therapy; F17.210 Nicotine dependence, cigarettes, uncomplicated; Z20.822 Contact with and (suspected) exposure to COVID-19; B96.89 Other specified bacterial agents as the cause of diseases classified elsewhere
CPT/HCPCS: 0202U; 10060; 36415; 80048; 80076; 81001; 83605; 84145; 85025; 85652; 86140; 87040; 87070; 87076; 94640; 94761; 96365; 96366; 96367; 96368; 99285; J2543; J3370